=== PATIENT | female | born 1980 | race Hispanic/Latino ===

== ENCOUNTER 2017-03-01 13:02 | Emergency (ER) | payer OTHER ==
[2017-03-01 13:02] VITALS: BMI 26.3
[2017-03-01 13:17] VITALS: BP 121/60; PULSE 81; RESP 16; TEMP 98; O2SAT 100
[2017-03-01] MEDS ORDERED: Sodium Chloride 0.9% 1,000 ML IV STA (13:36)
--- NOTE | 2017-03-01 13:39 | ED PDOC ---
HPI: General Adult Time Seen by Provider: 03/01/17 13:38 Chief Complaint (Nursing): Abdominal Pain Chief Complaint (Provider): crampy lower abd pain History Per: Patient (36 y/o female [id number] approx 12 week gestation here with lower abdominal crampy pain here for evaluation. Patient has had US abdomen today outpatient with no heart rate noted. 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 Denies any vaginal bleeding.) Past Medical History Reviewed: Historical Data, Nursing Documentation, Vital Signs Vital Signs: Last Vital Signs Temp 98.0 F 03/01/17 13:14 Pulse 81 03/01/17 13:14 Resp 16 03/01/17 13:14 BP 121/60 03/01/17 13:14 Pulse Ox 100 03/02/17 23:17 - Medical History PMH: Asthma Denies: HIV, Chronic Kidney Disease - Family History Family History: States: No Known Family Hx - Home Medications Home Medications: Ambulatory Orders Medication Instructions Recorded Acetaminophen [Tylenol 325mg tab] 325 mg ASDIR PRN 05/18/16 Albuterol HFA [Ventolin HFA 90 1 puff ASDIR PRN 05/18/16 mcg/actuation (8 g)] Ibuprofen [Motrin] 600 mg PO Q6H PRN #30 tab 05/18/16 - Allergies Allergies/Adverse Reactions: Allergies Allergy/AdvReac Type Severity Reaction Status Date / Time amoxicillin Allergy RASH Verified 03/01/17 13:14 Review of Systems ROS Statement: Except As Marked, All Systems Reviewed And Found Negative Physical Exam - Reviewed Nursing Documentation Reviewed: Yes Vital Signs Reviewed: Yes - Physical Exam Appears: Positive for: Well, Non-toxic, No Acute Distress Head Exam: Positive for: ATRAUMATIC, NORMAL INSPECTION, NORMOCEPHALIC Skin: Positive for: Normal Color, Warm, DRY Eye Exam: Positive for: EOMI, Normal appearance, PERRL ENT: Positive for: Normal ENT Inspection Neck: Positive for: Normal, Painless ROM Cardiovascular/Chest: Positive for: Regular Rate, Rhythm Respiratory: Positive for: CNT, Normal Breath Sounds Gastrointestinal/Abdominal: Positive for: Normal Exam, Bowel Sounds, Soft Pelvic Exam: Positive for: Other (PATIENT REFUSED PELVIC EXAM AT THIS TIME.) Back: Positive for: Normal Inspection Extremity: Positive for: Normal ROM Neurologic/Psych: Positive for: Alert, Oriented - Laboratory Results Result Diagrams: 03/01/17 13:53 03/01/17 13:53 - ECG O2 Sat by Pulse Oximetry: 100 - Progress ED Course And Treament: US TRANSVAGINAL Findings: The uterus measures approximately 15.6 x 11.0 x 6.0 cm. Anteverted. There is a single intrauterine fetus present. The gestational sac measures 4.0 cm and is compatible with a gestational age of 10 weeks 5 days. The crown-rump length measures 3.7 cm compatible with gestational age 10 weeks 4 days. Evidence of small subchorionic hemorrhage measuring approximately 1.6 x 0.9 cm inferior to the gestational sac. heart motion was not detected during this examination. The right ovary is not visualized. The left ovary measures 2.4 x 2.3 x 1.4 cm. Blood flow was demonstrated to the left ovary. Impression: Single intrauterine with estimated gestational age 10 weeks 5 days by gestational sac calculation and 10 weeks 4 days by crown-rump length calculation. Evidence of small subchorionic hemorrhage measuring approximately 1.6 x 0.9 cm noted inferior to the gestational sac. heart motion was not detected during this examination. Correlate clinically and repeat sonogram as indicated. 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 D/W HER RISKS AND BENEFITS OF ASSISTANT CHIEF ENGINEER CONSULTATION. AMA FORMS SIGNED. Disposition - Clinical Impression Clinical Impression: Abdominal pain during - Patient ED Disposition Is Patient to be Admitted: No - Disposition Disposition: Against Medical Advice Disposition Time: 17:18 Condition: STABLE
[2017-03-01 14:09] LABS: BASO % 0.4 % (0.0-2.0); EOS # 0.2 K/uL (0.0-0.7); EOS % 2.4 % (0.0-4.0); HEMOGLOBIN 12.6 g/dL (12.0-16.0); LYMPH # 2.3 K/uL (1.0-4.3); LYMPH % 23.2 % (20.0-40.0); MEAN CORPUSCULAR HEMOGLOBIN 32.7 pg (27.0-31.0); MEAN CORPUSCULAR HGB CONC 35.6 g/dL (33.0-37.0); MEAN PLATELET VOLUME 9.1 fl (7.2-11.7); MONO # 0.5 K/uL (0.0-0.8); MONO % 4.6 % (0.0-10.0); NEUT # 6.9 K/uL (1.8-7.0); NEUT % 69.4 % (50.0-75.0); NRBC % 0.1 % (0.0-0.0); RBC 3.87 Mil/uL (3.80-5.20); RED CELL DISTRIBUTION WIDTH 15.2 % (11.5-14.5)
[2017-03-01 14:13] LABS: ALB/GLOB RATIO 1.3 (1.0-2.1); ALBUMIN 4.2 g/dL (3.5-5.0); ALT/SGPT 29 U/L (9-52); AST/SGOT 16 U/L (14-36); CALCIUM 9.1 mg/dL (8.4-10.2); GFR AFRICAN-AMERICAN > 60; GFR NON-AFRICAN AMERICAN > 60
[2017-03-01 14:15] LABS: BLOOD UREA NITROGEN 2 mg/dl (7-17)
--- NOTE | 2017-03-01 15:52 | US ---
Indication: Possible demise Comparison: Pelvis/transvaginal ultrasound performed 01/15/17 Technique: Ob transvaginal Findings: The uterus measures approximately 15.6 x 11.0 x 6.0 cm. Anteverted. There is a single intrauterine fetus present. The gestational sac measures 4.0 cm and is compatible with a gestational age of 10 weeks 5 days. The crown-rump length measures 3.7 cm compatible with gestational age 10 weeks 4 days. Evidence of small subchorionic hemorrhage measuring approximately 1.6 x 0.9 cm inferior to the gestational sac. heart motion was not detected during this examination. The right ovary is not visualized. The left ovary measures 2.4 x 2.3 x 1.4 cm. Blood flow was demonstrated to the left ovary. Impression: Single intrauterine with estimated gestational age 10 weeks 5 days by gestational sac calculation and 10 weeks 4 days by crown-rump length calculation. Evidence of small subchorionic hemorrhage measuring approximately 1.6 x 0.9 cm noted inferior to the gestational sac. heart motion was not detected during this examination. Correlate clinically and repeat sonogram as indicated.
== END 2017-03-01 17:20 | disposition left against medical advice (07) ==
LOC: H.ER 13:02
DX: O26.899 Other specified pregnancy related conditions, unspecified trimester (principal); Z3A.10 10 weeks gestation of pregnancy

== ENCOUNTER 2017-03-18 12:31 | Inpatient (IN) | payer OTHER ==
[2017-03-18 12:41] VITALS: BMI 27.4
--- NOTE | 2017-03-18 13:28 | ED PDOC ---
HPI: Female Pain Time Seen by Provider: 03/18/17 13:06 Chief Complaint (Nursing): Abdominal Pain Chief Complaint (Provider): vaginal bleeding History Per: Patient History/Exam Limitations: no limitations Onset/Duration Of Symptoms: Days (x 2) Additional Complaint(s): Vandana Alicea is a 36 year old female, with no previous medical history, who is approximately 10 weeks presents to the ED for the evaluation of heavy vaginal bleeding with clotting associated with abdominal cramping ongoing for 2 days. Patient was seen in [facility] 10 days ago where she was informed there was no detectable heart rate and should expect the passing of the fetus. PMD: none provided Abnormal Vaginal Bleeding: Yes Past Medical History Reviewed: Historical Data, Nursing Documentation, Vital Signs Vital Signs: Last Vital Signs Temp 97.8 F 03/18/17 12:41 Pulse 137 H 03/18/17 12:41 Resp 19 03/18/17 12:41 BP 117/60 03/18/17 12:41 Pulse Ox 100 03/18/17 12:41 - Medical History PMH: Asthma Denies: HIV, Chronic Kidney Disease - Family History Family History: States: Unknown Family Hx - Home Medications Home Medications: Ambulatory Orders Medication Instructions Recorded Albuterol HFA [Ventolin HFA 90 2 puff IH Q4H PRN 03/18/17 mcg/actuation (8 g)] - Allergies Allergies/Adverse Reactions: Allergies Allergy/AdvReac Type Severity Reaction Status Date / Time amoxicillin Allergy RASH Verified 03/01/17 13:14 Review of Systems ROS Statement: Except As Marked, All Systems Reviewed And Found Negative Genitourinary Female: Positive for: Vaginal Bleeding, Pelvic Pain Physical Exam - Reviewed Nursing Documentation Reviewed: Yes Vital Signs Reviewed: Yes - Physical Exam Appears: Positive for: Well, Non-toxic, No Acute Distress Head Exam: Positive for: ATRAUMATIC, NORMAL INSPECTION, NORMOCEPHALIC Skin: Positive for: Normal Color, Warm, Dry Eye Exam: Positive for: Normal appearance ENT: Positive for: Normal ENT Inspection Neck: Positive for: Normal, Painless ROM, Supple Cardiovascular/Chest: Positive for: Regular Rate, Rhythm Respiratory: Positive for: CNT, Normal Breath Sounds Pelvic Exam: Positive for: Other (products of conceptions removed with forceps with moderate amount of bleeding noted. Clary HUSTON chaperoned ). Negative for: No Masses, Tender Adnexa Neurologic/Psych: Positive for: Alert, Oriented - Laboratory Results Result Diagrams: 03/18/17 16:41 03/18/17 13:00 - ECG O2 Sat by Pulse Oximetry: 100 (RA) Pulse Ox Interpretation: Normal Medical Decision Making Medical Decision Making: Initial Plan: * blood type and screen * beta-HCG * US OB * US OB transvaginal * labs * reevaluation Scribe Attestation: Documented by Priya Sharp, acting as a scribe for Bishop Quiros MD Provider Scribe Attestation: All medical record entries made by the Scribe were at my direction and personally dictated by me. I have reviewed the chart and agree that the record accurately reflects my personal performance of the history, physical exam, medical decision making, and the department course for this patient. I have also personally directed, reviewed, and agree with the discharge instructions and disposition. Disposition - Clinical Impression Clinical Impression: Incomplete , Anemia - Patient ED Disposition Is Patient to be Admitted: Yes - Disposition Disposition Time: 17:08 Condition: FAIR - Pt Status Changed To: Hospital Disposition Of: Inpatient - Admit Certification Admit to Inpatient:: After my assessment, the patient will require hospitalization for at least two midnights. This is because of the severity of symptoms shown, intensity of services needed, and/or the medical risk in this patient being treated as an outpatient. - POA Present On Arrival: None
[2017-03-18] MEDS ORDERED: Sodium Chloride 0.9% 1,000 ML IV STA ×2 (13:35→14:48)
[2017-03-18 14:11] LABS: BASO % 0.2 % (0.0-2.0); EOS % 0.1 % (0.0-4.0); HEMOGLOBIN 11.1 g/dL (12.0-16.0); LYMPH # 1.6 K/uL (1.0-4.3); LYMPH % 9.5 % (20.0-40.0); MEAN CELL VOLUME 92.4 fl (81.0-99.0); MEAN CORPUSCULAR HEMOGLOBIN 32.1 pg (27.0-31.0); MEAN CORPUSCULAR HGB CONC 34.8 g/dL (33.0-37.0); MEAN PLATELET VOLUME 9.6 fl (7.2-11.7); MONO # 0.6 K/uL (0.0-0.8); MONO % 3.2 % (0.0-10.0); PLATELET COUNT 296 K/uL (130-400); RBC 3.46 Mil/uL (3.80-5.20); WHITE BLOOD COUNT 17.2 K/uL (4.8-10.8)
[2017-03-18 14:14] LABS: ALB/GLOB RATIO 1.3 (1.0-2.1); ALBUMIN 3.9 g/dL (3.5-5.0); ALT/SGPT 22 U/L (9-52); AST/SGOT 24 U/L (14-36); BLOOD UREA NITROGEN 5 mg/dl (7-17); CALCIUM 9.1 mg/dL (8.4-10.2); GFR AFRICAN-AMERICAN > 60; GFR NON-AFRICAN AMERICAN > 60
[2017-03-18 15:28] LABS: LYMPHOCYTE 8 % (20-50); MONOCYTE 4 % (0-10); NEUTROPHIL 88 % (42-75); TOTAL CELLS COUNTED 100
[2017-03-18 15:29] LABS: ANISOCYTOSIS SLIGHT; LARGE PLATELETS PRESENT; OVALOCYTES SLIGHT; PLATELET ESTIMATE NORMAL (NORMAL)
[2017-03-18 16:53] LABS: BASO % 0.2 % (0.0-2.0); EOS % 0.3 % (0.0-4.0); LYMPH # 1.4 K/uL (1.0-4.3); LYMPH % 9.1 % (20.0-40.0); MEAN CELL VOLUME 93.5 fl (81.0-99.0); MEAN CORPUSCULAR HEMOGLOBIN 32.1 pg (27.0-31.0); MEAN CORPUSCULAR HGB CONC 34.3 g/dL (33.0-37.0); MEAN PLATELET VOLUME 9.8 fl (7.2-11.7); MONO # 0.6 K/uL (0.0-0.8); MONO % 3.8 % (0.0-10.0); NEUT # 13.2 K/uL (1.8-7.0); NEUT % 86.6 % (50.0-75.0); RBC 2.39 Mil/uL (3.80-5.20); RED CELL DISTRIBUTION WIDTH 14.8 % (11.5-14.5); WHITE BLOOD COUNT 15.3 K/uL (4.8-10.8)
[2017-03-18 16:57] LABS: HEMOGLOBIN 7.7 g/dL (12.0-16.0)
--- NOTE | 2017-03-18 17:00 | US ---
PROCEDURE: Obstetrical ultrasound examination HISTORY: threatened ab COMPARISON: 03/01/2017 TECHNIQUE: Transabdominal and transvaginal FINDINGS: There is no intrauterine gestation identified on the current examination. Previously identified intrauterine gestation is no longer evident. The endometrium is markedly thickened, measuring 3.7 cm. It is heterogeneous. This likely represents blood clot. There is no clear evidence of retained products of conception. The uterus measures 11.2 by 7.3 x 8.0 cm. There is no uterine mass. There is no free fluid in the cul-de-sac. Neither the right nor the left ovary are visualized. IMPRESSION: Findings consistent with miscarriage. No intrauterine gestation is evident. Probable intrauterine blood clot. No clear evidence of retained products of conception.
[2017-03-18] MEDS ORDERED: Sodium Chloride 0.9% 1,000 ML IV SCH (19:00)
--- NOTE | 2017-03-18 20:18 | CP.PCM.CON ---
History of Present Illness - History of Present Illness History of Present Illness: 36 yo recently with a 10 wk missed came into ER bleeding and abdominal pain. The ER attending was able to remove products of conception and U /S confirmed no gestational sac was noted, however the patient in the process was bleeding heavily and her Hgb dropped from 11.1 to 7.6. The patient became tacycardic up to 120s and slightly hypotensive 190s/50s. Patient to be transfused blood and was evaluated by myself for further management. Patient currently was feeling slightly better since passing tissue, bleeding had started to lessen, and patient was feeling less dizzy. No nausea/no vomiting, no CP, no SOB, no loss of consciousness, no abdominal pain Past Patient History - Past Medical History & Family History Past Medical History?: Yes - Past Social History Smoking Status: Never Smoked - CARDIAC Hx Cardiac Disorders: No - PULMONARY Hx Respiratory Disorders: Yes - NEUROLOGICAL Hx Neurological Disorder: No - HEENT Hx HEENT Problems: No - RENAL Hx Chronic Kidney Disease: No - ENDOCRINE/METABOLIC Hx Endocrine Disorders: No - HEMATOLOGICAL/ONCOLOGICAL Hx Human Immunodeficiency Virus (HIV): No - INTEGUMENTARY Hx Dermatological Problems: No - MUSCULOSKELETAL/RHEUMATOLOGICAL Hx Musculoskeletal Disorders: Yes - GASTROINTESTINAL Hx Gastrointestinal Disorders: No - GENITOURINARY/GYNECOLOGICAL Hx Genitourinary Disorders: No Other/Comment: multple misscarriage - PSYCHIATRIC Hx Psychophysiologic Disorder: No Hx Substance Use: No - SURGICAL HISTORY Hx Surgeries: Yes Hx Dilation and Curettage: Yes (X2) - ANESTHESIA Hx Anesthesia: Yes Hx Anesthesia Reactions: No Hx Malignant Hyperthermia: No Meds Allergies/Adverse Reactions: Allergies Allergy/AdvReac Type Severity Reaction Status Date / Time amoxicillin Allergy RASH Verified 03/01/17 13:14 - Medications Medications: Current Medications Sodium Chloride (Sodium Chloride 0.9%) 1,000 mls @ 100 mls/hr IV .Q10H LEILA Stop: 03/19/17 18:50 Physical Exam - Head Exam Head Exam: ATRAUMATIC - Respiratory Exam Respiratory Exam: Clear to Auscultation Bilateral, NORMAL BREATHING PATTERN - Cardiovascular Exam Cardiovascular Exam: REGULAR RHYTHM, +S1, +S2 - GI/Abdominal Exam GI & Abdominal Exam: Normal Bowel Sounds, Soft Additional comments: non tender, non-distended, no rebound, no gaurding - Exam Additional comments: os open, some bleeding noted from os, no products, no masses, no tissues present - Extremities Exam Extremities exam: Positive for: normal inspection Results - Vital Signs Recent Vital Signs: Last Vital Signs Temp 98.7 F 03/18/17 19:54 Pulse 94 H 03/18/17 19:54 Resp 16 03/18/17 19:54 BP 93/59 L 03/18/17 19:54 Pulse Ox 99 03/18/17 19:54 - Labs Result Diagrams: 03/18/17 16:41 03/18/17 13:00 Assessment & Plan - Assessment and Plan (Free Text) Assessment: A/P with currently incomplete miscarriage 1. Patient passed tissue in ER and currently has no products noted on exam or on U/S, however patient's cervical os is still open, most likely felt to be parous cervix and patient just recently passed tissue. Patient's Hgb went from 11.1->7.6 and patient became symptomatic. Patient to be admitted for blood transfusion. WIll place Vaginal Cytotec 800mg to help with completion of miscarriage and recommended Doxycyline 200mg PO x 1 dose to prevent endometritis. 2. Patient unlikely to need D&C for management. Will continued to be observed by medicine team and if feels well after transfusion and if bleeding significantly stops would recommend discharge 3. Follow up with an OB in 1-2 wks - Date & Time Date: 03/18/17 Time: 20:18
[2017-03-18] MEDS ORDERED: Albuterol HFA 90 mcg/actuation (8 g) IH PRN (22:12)
[2017-03-19 10:24] LABS: HEMOGLOBIN 9.6 g/dL (12.0-16.0); MEAN CELL VOLUME 91.2 fl (81.0-99.0); MEAN CORPUSCULAR HEMOGLOBIN 31.7 pg (27.0-31.0); MEAN CORPUSCULAR HGB CONC 34.8 g/dL (33.0-37.0); RBC 3.03 Mil/uL (3.80-5.20); RED CELL DISTRIBUTION WIDTH 15.1 % (11.5-14.5)
[2017-03-19 10:36] LABS: WHITE BLOOD COUNT 7.3 K/uL (4.8-10.8)
[2017-03-19 10:45] LABS: ALB/GLOB RATIO 1.2 (1.0-2.1); ALBUMIN 2.8 g/dL (3.5-5.0); ALT/SGPT 19 U/L (9-52); AST/SGOT 17 U/L (14-36); BLOOD UREA NITROGEN 4 mg/dl (7-17); CALCIUM 8.6 mg/dL (8.4-10.2); GFR AFRICAN-AMERICAN > 60; GFR NON-AFRICAN AMERICAN > 60
[2017-03-19 11:52] VITALS: RESP 18
[2017-03-19 12:23] VITALS: BP 110/75; PULSE 95; TEMP 98.3; O2SAT 100
--- NOTE | 2017-03-19 23:57 | CP.PCM.HP ---
History of Present Illness - History of Present Illness History of Present Illness: A 36 yr old female with hx of 10 weeks with hx of multiple miscarriages came with another spontaneous miscarriage with profuse vaginal bleeding for 2 days found out to be with hb dropped from 7.7 from 11 while in ER. obgyn evaluated the patient ,advise to observe patient as vaginal u\s showed no retain products Present on Admission - Present on Admission Any Indicators Present on Admission: No Review of Systems - Constitutional Constitutional: Fatigue, Headache. absent: Fever - EENT Nose/Mouth/Throat: absent: Nasal Congestion, Sore Throat - Cardiovascular Cardiovascular: Palpitations. absent: Chest Pain, Diaphoresis, Dyspnea, Pedal Edema - Respiratory Respiratory: absent: Cough, Wheezing, Excessive Mucous Production - Gastrointestinal Gastrointestinal: absent: Abdominal Pain, Constipation, Nausea, Vomiting - Genitourinary Genitourinary: absent: Urinary Frequency, Voiding Freq/Small Amts - Menstruation Menstruation: Abnormal Vaginal Bleeding - Musculoskeletal Musculoskeletal: absent: Deformity, Limited Range of Motion, Myalgias - Integumentary Integumentary: absent: Lesions - Neurological Neurological: Dizziness. absent: Abnormal Gait, Frequent Falls - Psychiatric Psychiatric: absent: Depression, Hallucinations Past Patient History - Past Medical History & Family History Past Medical History?: Yes - Past Social History Smoking Status: Never Smoked - CARDIAC Hx Cardiac Disorders: No - PULMONARY Hx Respiratory Disorders: Yes Hx Asthma: Yes - NEUROLOGICAL Hx Neurological Disorder: No - HEENT Hx HEENT Problems: No - RENAL Hx Chronic Kidney Disease: No - ENDOCRINE/METABOLIC Hx Endocrine Disorders: No - HEMATOLOGICAL/ONCOLOGICAL Hx AIDS: No Hx Human Immunodeficiency Virus (HIV): No - INTEGUMENTARY Hx Dermatological Problems: No - MUSCULOSKELETAL/RHEUMATOLOGICAL Hx Musculoskeletal Disorders: No Hx Falls: No - GASTROINTESTINAL Hx Gastrointestinal Disorders: No - GENITOURINARY/GYNECOLOGICAL Hx Genitourinary Disorders: No Other/Comment: multple misscarriage - PSYCHIATRIC Hx Psychophysiologic Disorder: No Hx Substance Use: No - SURGICAL HISTORY Hx Surgeries: Yes Hx Dilation and Curettage: Yes - ANESTHESIA Hx Anesthesia: Yes Hx Anesthesia Reactions: No Hx Malignant Hyperthermia: No Meds Home Medications: Home Medication List Medication Instructions Recorded Confirmed Type Docusate Sodium [Colace] 100 mg PO DAILY PRN #7 capsule 03/19/17 Rx Ferrous Gluconate 324 mg PO Q12 #14 tablet 03/19/17 Rx Allergies/Adverse Reactions: Allergies Allergy/AdvReac Type Severity Reaction Status Date / Time amoxicillin Allergy RASH Verified 03/01/17 13:14 Physical Exam - Constitutional Appears: No Acute Distress - Head Exam Head Exam: ATRAUMATIC, NORMAL INSPECTION, NORMOCEPHALIC - Eye Exam Eye Exam: EOMI, Normal appearance, PERRL. absent: Scleral icterus - ENT Exam ENT Exam: Mucous Membranes Dry - Neck Exam Neck exam: Positive for: Normal Inspection. Negative for: Lymphadenopathy, Tenderness - Respiratory Exam Respiratory Exam: Clear to Auscultation Bilateral, NORMAL BREATHING PATTERN. absent: Rhonchi, Wheezes - Cardiovascular Exam Cardiovascular Exam: Tachycardia, REGULAR RHYTHM, +S1, +S2. absent: JVD, Systolic Murmur - GI/Abdominal Exam GI & Abdominal Exam: Normal Bowel Sounds, Soft. absent: Tenderness - Extremities Exam Extremities exam: Positive for: normal inspection, pedal pulses present. Negative for: pedal edema - Back Exam Back exam: NORMAL INSPECTION. absent: paraspinal tenderness - Neurological Exam Neurological exam: Alert, CN II-XII Intact, Normal Gait, Oriented x3 - Psychiatric Exam Psychiatric exam: Normal Affect, Normal Mood - Skin Skin Exam: Intact, Pallor Results - Vital Signs Recent Vital Signs: Last Vital Signs Temp 98.3 F 03/19/17 12:22 Pulse 95 H 03/19/17 12:22 Resp 18 03/19/17 12:22 BP 110/75 03/19/17 12:22 Pulse Ox 100 03/19/17 12:22 - Labs Result Diagrams: 03/19/17 08:30 03/19/17 08:30 Labs: Laboratory Results - last 24 hr 03/19/17 03/19/17 08:30 08:30 WBC 7.3 D RBC 3.03 L Hgb 9.6 L Hct 27.6 L MCV 91.2 D MCH 31.7 H MCHC 34.8 RDW 15.1 H Plt Count 157 Sodium 139 Potassium 3.6 Chloride 110 H Carbon Dioxide 23 Anion Gap 10 BUN 4 L Creatinine 0.6 L Est GFR ( Amer) > 60 Est GFR (Non-Af Amer) > 60 Random Glucose 88 Calcium 8.6 Total Bilirubin 0.7 AST 17 ALT 19 Alkaline Phosphatase 37 L D Total Protein 5.2 L Albumin 2.8 L D Globulin 2.4 Albumin/Globulin Ratio 1.2 - Imaging and Cardiology US - abdomen Status: Report reviewed by me Assessment & Plan (1) Anemia due to blood loss Status: Acute Comment: ivf. tranfused 2 units of PRBC. HB9.9. feels better able to ambulate with no dizziness. awaiting for obgyn to clear pt for discharge (2) Headache Status: Resolved Comment: likleytension type. feels better Decision To Admit - Pt Status Changed To: Hospital Disposition Of: Observation - . Bed Request Type: Telemetry Admitting Physician: Lucy Mallory
--- NOTE | 2017-03-20 12:29 | CP.PCM.DIS ---
Provider - Provider Date of Admission: 03/18/17 17:01 Attending physician: Lucy Mallory MD Time Spent in preparation of Discharge (in minutes): 15 Diagnosis - Discharge Diagnosis (1) Anemia due to blood loss Status: Acute Comment: NEEDS CONNECTIVE TISSUE disorder work up (2) Headache Status: Resolved Hospital Course - Lab Results Lab Results: Most Recent Lab Values WBC 7.3 K/uL (4.8-10.8) D 03/19/17 08:30 RBC 3.03 Mil/uL (3.80-5.20) L 03/19/17 08:30 Hgb 9.6 g/dL (12.0-16.0) L 03/19/17 08:30 Hct 27.6 % (34.0-47.0) L 03/19/17 08:30 MCV 91.2 fl (81.0-99.0) D 03/19/17 08:30 MCH 31.7 pg (27.0-31.0) H 03/19/17 08:30 MCHC 34.8 g/dL (33.0-37.0) 03/19/17 08:30 RDW 15.1 % (11.5-14.5) H 03/19/17 08:30 Plt Count 157 K/uL (130-400) 03/19/17 08:30 MPV 9.8 fl (7.2-11.7) 03/18/17 16:41 Neut % (Auto) 86.6 % (50.0-75.0) H 03/18/17 16:41 Lymph % (Auto) 9.1 % (20.0-40.0) L 03/18/17 16:41 [place] % (Auto) 3.8 % (0.0-10.0) 03/18/17 16:41 Eos % (Auto) 0.3 % (0.0-4.0) 03/18/17 16:41 Baso % (Auto) 0.2 % (0.0-2.0) 03/18/17 16:41 Neut # 13.2 K/uL (1.8-7.0) H 03/18/17 16:41 Lymph # 1.4 K/uL (1.0-4.3) 03/18/17 16:41 [place] # 0.6 K/uL (0.0-0.8) 03/18/17 16:41 Eos # 0.0 K/uL (0.0-0.7) 03/18/17 16:41 Baso # 0.0 K/uL (0.0-0.2) 03/18/17 16:41 Neutrophils % (Manual) 88 % (42-75) H 03/18/17 13:00 Lymphocytes % (Manual) 8 % (20-50) L 03/18/17 13:00 Monocytes % (Manual) 4 % (0-10) 03/18/17 13:00 Platelet Estimate Normal (NORMAL) 03/18/17 13:00 Large Platelets Present 03/18/17 13:00 Anisocytosis (manual) Slight 03/18/17 13:00 Macrocytosis (manual) Slight 03/18/17 13:00 Ovalocytes Slight 03/18/17 13:00 Sodium 139 mmol/l (132-148) 03/19/17 08:30 Potassium 3.6 MMOL/L (3.6-5.0) 03/19/17 08:30 Chloride 110 mmol/L (98-107) H 03/19/17 08:30 Carbon Dioxide 23 mmol/L (22-30) 03/19/17 08:30 Anion Gap 10 (10-20) 03/19/17 08:30 BUN 4 mg/dl (7-17) L 03/19/17 08:30 Creatinine 0.6 mg/dL (0.7-1.2) L 03/19/17 08:30 Est GFR ( Amer) > 60 03/19/17 08:30 Est GFR (Non-Af Amer) > 60 03/19/17 08:30 Random Glucose 88 mg/dL (65-105) 03/19/17 08:30 Calcium 8.6 mg/dL (8.4-10.2) 03/19/17 08:30 Total Bilirubin 0.7 mg/dl (0.2-1.3) 03/19/17 08:30 AST 17 U/L (14-36) 03/19/17 08:30 ALT 19 U/L (9-52) 03/19/17 08:30 Alkaline Phosphatase 37 U/L (38-126) L D 03/19/17 08:30 Total Protein 5.2 G/DL (6.3-8.2) L 03/19/17 08:30 Albumin 2.8 g/dL (3.5-5.0) L D 03/19/17 08:30 Globulin 2.4 gm/dL (2.2-3.9) 03/19/17 08:30 Albumin/Globulin Ratio 1.2 (1.0-2.1) 03/19/17 08:30 Beta HCG, Quant 305.63 mIU/mL 03/18/17 13:00 Blood Type O POSITIVE 03/18/17 13:00 Antibody Screen Negative 03/18/17 13:00 Crossmatch See Detail 03/18/17 13:00 BBK History Checked Patient has bt 03/18/17 13:00 - Hospital Course Hospital Course: patient child came to room, patient refuse to s F\U OBGYNend her back, d\w patient after lengthy discussion,agrred advise to take [id number] colace PRN Discharge Exam - Head Exam Head Exam: ATRAUMATIC, NORMAL INSPECTION, NORMOCEPHALIC Discharge Plan - Discharge Medications Prescriptions: Docusate Sodium [Colace] 100 mg PO DAILY PRN #7 capsule PRN Reason: Constipation Ferrous Gluconate 324 mg PO Q12 #14 tablet - Follow Up Plan Condition: FAIR Disposition: HOME/ ROUTINE Instructions: Spontaneous Miscarriage (DC), Anemia (DC)
== END 2017-03-19 15:45 | disposition home or self-care (01) | DRG 380 ==
LOC: H.ER 12:31 → H.ERHOLD 17:01 → H.TEL 18:41
PROVIDERS: ADMIT Internal Medicine; ATTEND Internal Medicine
PROC: 30233N1 Transfusion of Nonautologous Red Blood Cells into Peripheral Vein, Percutaneous Approach (ICD-10-PCS; principal; 2017-03-18)
DX: O03.4 Incomplete spontaneous abortion without complication (principal); D50.0 Iron deficiency anemia secondary to blood loss (chronic); J45.909 Unspecified asthma, uncomplicated; R51 Headache

== ENCOUNTER 2017-07-16 12:48 | Emergency (ER) | payer OTHER ==
[2017-07-16 12:52] VITALS: RESP 16; TEMP 98.6
[2017-07-16 12:53] VITALS: BMI 28.8
--- NOTE | 2017-07-16 14:03 | ED PDOC ---
Syncope/Near Syncope/Dizziness Time Seen by Provider: 07/16/17 13:09 Chief Complaint (Nursing): Dizziness/Lightheaded Chief Complaint (Provider): Dizziness History Per: Patient History/Exam Limitations: no limitations Onset/Duration Of Symptoms: Days (Yesterday 18:00), Sudden Onset Associated Symptoms Preceding Syncopal Episode: Vertigo Additional Complaint(s): Patient is a 36 y/o female with a past medical history of vertigo, who presents to the ED complaining of dizziness that began suddenly last night at 18:00. Patient reports that she felt she was going to pass out, but did not. She notes the dizziness subsided but is still present on arrival, and that she intermittently feels dizzy when walking. She also reports being told she has a history of vertigo and that she suffered an episode a long time ago, and that she has had ringing and noise in her right ear for many years. She denies taking any mediations for her current symptoms, as well as any chest pain, shortness of breath, palpitations, bleeding, or headache. PCP: Gabrielle Blue Past Medical History Reviewed: Historical Data, Nursing Documentation, Vital Signs Vital Signs: Last Vital Signs Temp 98.6 F 07/16/17 12:51 Pulse 109 H 07/16/17 12:51 Resp 16 07/16/17 12:51 BP 127/73 07/16/17 12:51 Pulse Ox 98 07/16/17 12:51 - Medical History PMH: Asthma Denies: HIV, Chronic Kidney Disease - Surgical History Other surgeries: Dilation and curretage - Family History Family History: States: No Known Family Hx, Unknown Family Hx - Social History Current smoker - smoking cessation education provided: No Ex-Smoker (has not smoked in the last 12 months): No Alcohol: None Drugs: Denies - Home Medications Home Medications: Ambulatory Orders Medication Instructions Recorded Albuterol HFA [Ventolin HFA 90 2 puff IH Q4H PRN 03/18/17 mcg/actuation (8 g)] Docusate Sodium [Colace] 100 mg PO DAILY PRN #7 capsule 03/19/17 Ferrous Gluconate 324 mg PO Q12 #14 tablet 03/19/17 Meclizine [Meclizine*] 25 mg PO TID PRN #30 tab 07/16/17 - Allergies Allergies/Adverse Reactions: Allergies Allergy/AdvReac Type Severity Reaction Status Date / Time amoxicillin Allergy RASH Verified 07/16/17 12:50 Review of Systems ROS Statement: Except As Marked, All Systems Reviewed And Found Negative Cardiovascular: Negative for: Chest Pain, Palpitations Respiratory: Negative for: Shortness of Breath Genitourinary Female: Negative for: Vaginal Bleeding Neurological: Positive for: Dizziness. Negative for: Headache Physical Exam - Reviewed Nursing Documentation Reviewed: Yes Vital Signs Reviewed: Yes - Physical Exam Appears: Positive for: No Acute Distress Head Exam: Positive for: ATRAUMATIC, NORMOCEPHALIC Skin: Positive for: Normal Color, Warm, Dry Eye Exam: Positive for: Normal appearance, EOMI, PERRL Neck: Positive for: Normal, Painless ROM, Supple Cardiovascular/Chest: Positive for: Regular Rate, Rhythm. Negative for: Murmur Respiratory: Positive for: Normal Breath Sounds. Negative for: Respiratory Distress Gastrointestinal/Abdominal: Positive for: Normal Exam, Soft. Negative for: Tenderness Back: Positive for: Normal Inspection. Negative for: L CVA Tenderness, R CVA Tenderness, Vertebral Tenderness Extremity: Positive for: Normal ROM. Negative for: Pedal Edema, Deformity Neurologic/Psych: Positive for: Alert, Oriented (x3). Negative for: Motor/ Sensory Deficits - Laboratory Results Result Diagrams: 07/16/17 14:10 07/16/17 14:10 - ECG O2 Sat by Pulse Oximetry: 98 (RA) Pulse Ox Interpretation: Normal Medical Decision Making Medical Decision Makin:53 Initial Impression: Vertigo Differential: Central Vertigo versus Peripheral Vertigo Initial Plan: --CT Head w/o contrast --EKG --Basic Metabolic Panel --Troponin I --ED Urine --ED Urine dipstick --CBC --Antivert 25 mg PO 15:07 CT Head w/o contrast FINDINGS: HEMORRHAGE: No acute parenchymal, subarachnoid or extra-axial hemorrhage. BRAIN: No mass effect or edema. No atrophy or chronic microvascular ischemic changes. VENTRICLES: No obstructive hydrocephalus. . 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 PARANASAL SINUSES: Unremarkable as visualized. No significant inflammatory changes. MASTOID AIR CELLS: Unremarkable as visualized. No inflammatory changes. OTHER FINDINGS: None. IMPRESSION: No acute intracranial hemorrhage. 16:27 -Patient is found to be feeling better. Patient is stable for discharge home with followup with Neurologist and ENT specialist Clinical Impression: Vertigo Upon provider evaluation patient is medically stable, and requires no further treatment in the ED at this time. Patient will be discharged with Rx for Meclizine 25mg PO. Counseling was provided and all questions were answered regarding diagnosis and need for follow up with Vishal Cullen MD and Taat Baker MD. There is agreement to discharge plan. Return if symptoms persist or worsen. Scribe Attestation: Documented by Reg Culver, acting as a scribe for Tara Branham MD Provider Scribe Attestation: All medical record entries made by the Scribe were at my direction and personally dictated by me. I have reviewed the chart and agree that the record accurately reflects my personal performance of the history, physical exam, medical decision making, and the department course for this patient. I have also personally directed, reviewed, and agree with the discharge instructions and disposition. Disposition - Clinical Impression Clinical Impression: Dizziness - Patient ED Disposition Is Patient to be Admitted: No Doctor Will See Patient In The: Office Counseled Patient/Family Regarding: Studies Performed, Diagnosis, Need For Followup - Disposition Referrals: Tata Baker MD [Staff Provider] - Vishal Cullen MD [Staff Provider] - Disposition: Routine/Home Disposition Time: 16:27 Condition: GOOD Additional Instructions: Take your medications as instructed. Follow up with up in 2-3 days. Prescriptions: Meclizine [Meclizine*] 25 mg PO TID PRN #30 tab PRN Reason: Dizziness Instructions: Vertigo (ED)
[2017-07-16 14:26] LABS: BASO # 0.1 K/uL (0.0-0.2); BASO % 0.8 % (0.0-2.0); EOS # 0.1 K/uL (0.0-0.7); EOS % 1.6 % (0.0-4.0); HEMATOCRIT 39.8 % (34.0-47.0); LYMPH # 1.9 K/uL (1.0-4.3); LYMPH % 21.4 % (20.0-40.0); MEAN CELL VOLUME 89.2 fl (81.0-99.0); MEAN CORPUSCULAR HEMOGLOBIN 31.8 pg (27.0-31.0); MEAN CORPUSCULAR HGB CONC 35.6 g/dL (33.0-37.0); MEAN PLATELET VOLUME 8.5 fl (7.2-11.7); MONO # 0.4 K/uL (0.0-0.8); NEUT # 6.2 K/uL (1.8-7.0); NEUT % 71.2 % (50.0-75.0); NRBC % 0.1 % (0.0-0.0); RED CELL DISTRIBUTION WIDTH 13.7 % (11.5-14.5); WHITE BLOOD COUNT 8.8 K/uL (4.8-10.8)
[2017-07-16 14:46] LABS: BLOOD UREA NITROGEN 7 mg/dl (7-17); CALCIUM 9.6 mg/dL (8.4-10.2); CARBON DIOXIDE 26 mmol/L (22-30); CHLORIDE 104 mmol/L (98-107); GFR AFRICAN-AMERICAN > 60; GLUCOSE,RANDOM 94 mg/dL (65-105); POTASSIUM 4.1 MMOL/L (3.6-5.0); SODIUM 141 mmol/l (132-148)
--- NOTE | 2017-07-16 15:09 | CT ---
PROCEDURE: CT HEAD WITHOUT CONTRAST. HISTORY: dizzines COMPARISON: None available. TECHNIQUE: Axial computed tomography images were obtained through the head/brain without intravenous contrast. Radiation dose: Total exam DLP = 1141.36 mGy-cm. This CT exam was performed using one or more of the following dose reduction techniques: Automated exposure control, adjustment of the mA and/or kV according to patient size, and/or use of iterative reconstruction technique. FINDINGS: HEMORRHAGE: No acute parenchymal, subarachnoid or extra-axial hemorrhage. BRAIN: No mass effect or edema. No atrophy or chronic microvascular ischemic changes. VENTRICLES: No obstructive hydrocephalus. . 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 PARANASAL SINUSES: Unremarkable as visualized. No significant inflammatory changes. MASTOID AIR CELLS: Unremarkable as visualized. No inflammatory changes. OTHER FINDINGS: None. IMPRESSION: No acute intracranial hemorrhage.
[2017-07-16] MEDS ORDERED: WATER IV ONE (15:56)
[2017-07-16] MEDS ORDERED: DEXAMETHASONE IV ONE (15:56)
[2017-07-16] MEDS ORDERED: DEXTROSE 5% IV ONE (15:56)
[2017-07-16 17:05] VITALS: BP 114/74; PULSE 78; O2SAT 100
--- NOTE | 2017-07-17 21:16 | CARD ---
APPROVED REPORT EKG Measurement Heart [id number] CT [id number] [id number] <Conclusion> Normal sinus rhythm Rightward axis Possible Inferior infarct, age undetermined Abnormal ECG
== END 2017-07-16 17:00 | disposition home or self-care (01) ==
LOC: H.ER 12:48
DX: R42 Dizziness and giddiness (principal); J45.909 Unspecified asthma, uncomplicated
CPT/HCPCS: 70450; 80048; 81025; 84484; 85025; 93005; 96374; 99284; J1100

== ENCOUNTER 2017-08-27 12:55 | Emergency (ER) | payer OTHER ==
[2017-08-27 12:55] VITALS: BMI 28.8
[2017-08-27 13:05] VITALS: BP 128/70; PULSE 78; RESP 16; TEMP 97; O2SAT 100
--- NOTE | 2017-08-27 13:41 | ED PDOC ---
HPI: CCC, URI, Sore Throat Chief Complaint (Nursing): ENT Problem Chief Complaint (Provider): ENT/ vertigo History Per: Patient History/Exam Limitations: no limitations Onset/Duration Of Symptoms: Persistent (1 month) Current Symptoms Are (Timing): Still Present Additional Complaint(s): 36 y/o female with a past medical history of vertigo presents to ED complaining of dizziness, onset of 1 month. Patient was initially evaluated in this ED on for same complaints and states that these symptoms have been ongoing since then. Patient reports of following up with 2 ENT specialists, where she was given a prescription for Meclizine by one and a steroid by the other. Of note, the patient has been noncompliant with the medicine over the past few days because she states that the medicine does not help. No headache, no SOB, no chest pain PCP: Shaik Alarcon Past Medical History Reviewed: Historical Data, Nursing Documentation, Vital Signs Vital Signs: Last Vital Signs Temp 97.0 F L 08/27/17 13:00 Pulse 78 08/27/17 13:00 Resp 16 08/27/17 13:00 BP 128/70 08/27/17 13:00 Pulse Ox 100 08/27/17 13:55 - Medical History PMH: Asthma Denies: HIV, Chronic Kidney Disease Other PMH: Vertigo - Surgical History Surgical History: No Surg Hx - Family History Family History: States: Unknown Family Hx - Living Arrangements Living Arrangements: With Family - Social History Current smoker - smoking cessation education provided: No Alcohol: None Drugs: Denies - Home Medications Home Medications: Ambulatory Orders Medication Instructions Recorded Albuterol HFA [Ventolin HFA 90 2 puff IH Q4H PRN 03/18/17 mcg/actuation (8 g)] Docusate Sodium [Colace] 100 mg PO DAILY PRN #7 capsule 03/19/17 Ferrous Gluconate 324 mg PO Q12 #14 tablet 03/19/17 Meclizine [Meclizine*] 25 mg PO TID PRN #30 tab 07/16/17 Methylprednisolone [Medrol Dose 4 mg PO DAILY #21 mg 08/27/17 Pack (21 tabs)] - Allergies Allergies/Adverse Reactions: Allergies Allergy/AdvReac Type Severity Reaction Status Date / Time amoxicillin Allergy RASH Verified 07/16/17 12:50 Review of Systems ROS Statement: Except As Marked, All Systems Reviewed And Found Negative ENT: Negative for: Ear Pain Cardiovascular: Negative for: Chest Pain Respiratory: Negative for: Shortness of Breath Neurological: Positive for: Dizziness Physical Exam - Reviewed Nursing Documentation Reviewed: Yes Vital Signs Reviewed: Yes - Physical Exam Appears: Positive for: Non-toxic, No Acute Distress Head Exam: Positive for: ATRAUMATIC, NORMAL INSPECTION, NORMOCEPHALIC Skin: Positive for: Normal Color, Warm Eye Exam: Positive for: Normal appearance, EOMI, PERRL ENT: Positive for: Normal ENT Inspection Neck: Positive for: Normal, Painless ROM, Supple Cardiovascular/Chest: Positive for: Regular Rate, Rhythm. Negative for: Murmur Respiratory: Positive for: Normal Breath Sounds. Negative for: Respiratory Distress Gastrointestinal/Abdominal: Positive for: Normal Exam, Soft. Negative for: Tenderness Back: Positive for: Normal Inspection Extremity: Positive for: Normal ROM. Negative for: Pedal Edema, Deformity Neurologic/Psych: Positive for: Alert, Oriented. Negative for: Motor/Sensory Deficits - ECG O2 Sat by Pulse Oximetry: 100 (RA) Pulse Ox Interpretation: Normal Medical Decision Making Medical Decision Making: Time: --13:32 Impression: --36 y/o female with vertigo Plan: --Ativan 1 mg PO --Antivert 50 mg PO Reassess -- Scribe Attestation: Documented by Stoney Capone acting as a scribe for CHRIS Hazel. Disposition - Clinical Impression Clinical Impression: Vertigo - Patient ED Disposition Is Patient to be Admitted: No - Disposition Disposition: Routine/Home Disposition Time: 15:06 Condition: STABLE Prescriptions: Methylprednisolone [Medrol Dose Pack (21 tabs)] 4 mg PO DAILY #21 mg Instructions: Vertigo (ED) Forms: [employer] ([place] Citizen)
== END 2017-08-27 15:24 | disposition home or self-care (01) ==
LOC: H.ER 12:55
DX: R42 Dizziness and giddiness (principal); Z91.14 Patient's other noncompliance with medication regimen; J45.909 Unspecified asthma, uncomplicated

== ENCOUNTER 2017-09-07 10:51 | Emergency (ER) | payer OTHER ==
[2017-09-07 11:04] VITALS: BMI 29.2
[2017-09-07 11:05] VITALS: BP 120/58; PULSE 91; RESP 16; TEMP 98.1; O2SAT 98
--- NOTE | 2017-09-07 12:28 | ED PDOC ---
Lower Extremity Pain/Injury Time Seen by Provider: 09/07/17 11:11 Chief Complaint (Nursing): Lower Extremity Problem/Injury Chief Complaint (Provider): Lower Extremity Problem/Injury History Per: Patient History/Exam Limitations: no limitations Onset/Duration Of Symptoms: Days (x 2) Current Symptoms Are (Timing): Still Present Additional Complaint(s): Vandana is a 36 year old female who presents to the emergency department complaining of atraumatic left lower extremity pain for 2 days. Patient reports pain starts at the knee and radiate up. Patient reports not taking any medications for pain thus far, but is concern about potential blood clot PMD: Shaik Agnes Past Medical History Reviewed: Historical Data, Nursing Documentation, Vital Signs Vital Signs: Last Vital Signs Temp 98.1 F 09/07/17 11:04 Pulse 91 H 09/07/17 11:04 Resp 16 09/07/17 11:04 BP 120/58 L 09/07/17 11:04 Pulse Ox 98 09/07/17 11:04 - Medical History PMH: Asthma Denies: HIV, Chronic Kidney Disease - Surgical History Surgical History: No Surg Hx - Family History Family History: States: Unknown Family Hx - Home Medications Home Medications: Ambulatory Orders Medication Instructions Recorded Albuterol HFA [Ventolin HFA 90 2 puff IH Q4H PRN 03/18/17 mcg/actuation (8 g)] Docusate Sodium [Colace] 100 mg PO DAILY PRN #7 capsule 03/19/17 Ferrous Gluconate 324 mg PO Q12 #14 tablet 03/19/17 Meclizine [Meclizine*] 25 mg PO TID PRN #30 tab 07/16/17 Methylprednisolone [Medrol Dose 4 mg PO DAILY #21 mg 08/27/17 Pack (21 tabs)] Ibuprofen [Motrin] 600 mg PO Q6 #20 tab 09/07/17 - Allergies Allergies/Adverse Reactions: Allergies Allergy/AdvReac Type Severity Reaction Status Date / Time amoxicillin Allergy RASH Verified 09/07/17 11:08 Review of Systems ROS Statement: Except As Marked, All Systems Reviewed And Found Negative Musculoskeletal: Positive for: Other (Left Lower Extremity Pain) Physical Exam - Reviewed Nursing Documentation Reviewed: Yes Vital Signs Reviewed: Yes - Physical Exam Appears: Positive for: Non-toxic Head Exam: Positive for: NORMAL INSPECTION Skin: Positive for: Normal Color, Warm, DRY Eye Exam: Positive for: Normal appearance ENT: Positive for: Normal ENT Inspection Neck: Positive for: Normal, Supple Cardiovascular/Chest: Positive for: Regular Rate, Rhythm Respiratory: Positive for: Normal Breath Sounds. Negative for: Respiratory Distress Gastrointestinal/Abdominal: Positive for: Normal Exam, Soft. Negative for: Tenderness Back: Positive for: Normal Inspection Extremity: Positive for: Normal ROM. Negative for: Deformity Neurologic/Psych: Positive for: Alert, Oriented (x 3) - ECG O2 Sat by Pulse Oximetry: 98 (RA) Pulse Ox Interpretation: Normal Medical Decision Making Medical Decision Making: Time: 11:56 Plan: - Left Knee X-Ray - Motrin Tab - Left Femur X-Ray - Left Lower Extremity Ultrasound Time:12:43 Left Knee X-Ray FINDINGS: BONES: Normal. No fracture. JOINTS: Normal. No osteoarthritis. JOINT EFFUSION: None. OTHER FINDINGS: None. IMPRESSION: Normal radiographs of the left knee. Time: 13:13 Left Femur X-Ray FINDINGS: No fracture or lytic lesions noted. No periosteal reaction. Surrounding soft tissues appear grossly unremarkable IMPRESSION: Negative exam as detailed above US: Negative for DVT Scribe Attestation: Documented by Mike Bravo, acting as a scribe for MARLON Hazel Provider Scribe Attestation: All medical record entries made by the Scribe were at my direction and personally dictated by me. I have reviewed the chart and agree that the record accurately reflects my personal performance of the history, physical exam, medical decision making, and the department course for this patient. I have also personally directed, reviewed, and agree with the discharge instructions and disposition. Disposition - Clinical Impression Clinical Impression: Leg pain - Patient ED Disposition Is Patient to be Admitted: No - Disposition Disposition: Routine/Home Disposition Time: 16:17 Condition: STABLE Prescriptions: Ibuprofen [Motrin] 600 mg PO Q6 #20 tab Instructions: Leg Pain (ED) Forms: [employer] ([place]) Connect ([place])
--- NOTE | 2017-09-07 13:13 | RAD ---
PROCEDURE: HISTORY: pain COMPARISON: None TECHNIQUE: Single frontal view left femur. Extreme left femoral head cap excluded from view FINDINGS: No fracture or lytic lesions noted. No periosteal reaction. Surrounding soft tissues appear grossly unremarkable IMPRESSION: Negative exam as detailed above
--- NOTE | 2017-09-07 13:13 | RAD ---
PROCEDURE: Left Knee Radiographs. HISTORY: Pain. COMPARISON: None. FINDINGS: BONES: Normal. No fracture. JOINTS: Normal. No osteoarthritis. JOINT EFFUSION: None. OTHER FINDINGS: None. IMPRESSION: Normal radiographs of the left knee.
--- NOTE | 2017-09-07 16:29 | US ---
Left lower extremity ultrasound. Indication: Rule out DVT Technique: Duplex ultrasound evaluation of the left lower extremity Comparison: None available Findings: There is normal flow, compressibility, and augmentation of the left common femoral, femoral, and popliteal veins. The left posterior tibial vein appears patent. Impression: No evidence of deep venous thrombosis in the left lower extremity.
== END 2017-09-07 16:25 | disposition home or self-care (01) ==
LOC: H.ER 10:51
DX: M79.605 Pain in left leg (principal)

== ENCOUNTER 2017-11-28 09:53 | Emergency (ER) | payer OTHER ==
[2017-11-28 10:09] VITALS: BMI 29.4
[2017-11-28 10:10] VITALS: O2SAT 99
[2017-11-28 11:49] LABS: BASO # 0.1 K/uL (0.0-0.2); EOS # 0.3 K/uL (0.0-0.7); EOS % 3.9 % (0.0-4.0); HEMOGLOBIN 13.9 g/dL (12.0-16.0); LYMPH # 1.8 K/uL (1.0-4.3); LYMPH % 23.7 % (20.0-40.0); MEAN CELL VOLUME 91.7 fl (81.0-99.0); MONO # 0.5 K/uL (0.0-0.8); NEUT % 65.4 % (50.0-75.0); RBC 4.33 Mil/uL (3.80-5.20); RED CELL DISTRIBUTION WIDTH 13.4 % (11.5-14.5); WHITE BLOOD COUNT 7.6 K/uL (4.8-10.8)
[2017-11-28 12:04] LABS: ALB/GLOB RATIO 1.3 (1.0-2.1)
[2017-11-28 12:09] LABS: ALBUMIN 4.3 g/dL (3.5-5.0); ALT/SGPT 23 U/L (9-52); AST/SGOT 16 U/L (14-36); BLOOD UREA NITROGEN 10 mg/dl (7-17); CALCIUM 9.6 mg/dL (8.4-10.2); GFR AFRICAN-AMERICAN > 60; GFR NON-AFRICAN AMERICAN > 60
--- NOTE | 2017-11-28 12:34 | ED PDOC ---
Syncope/Near Syncope/Dizziness Time Seen by Provider: 11/28/17 10:54 Chief Complaint (Nursing): Dizziness/Lightheaded Chief Complaint (Provider): Dizziness/Lightheaded History Per: Patient History/Exam Limitations: no limitations Additional Complaint(s): 37 y/o female presents to the ED complaining of dizziness, headache and blood in urine. States that she has dizziness since July on and off and has bloody urine since days. Her CT was normal in previous visits an upon follow up with neurologist she advised to get an MRI but she was so far unable to get it. Denies dysuria, vomiting, fever or any further medical complaints. Past Medical History Reviewed: Historical Data, Nursing Documentation, Vital Signs Vital Signs: Last Vital Signs Temp 98.1 F 11/28/17 10:09 Pulse 86 11/28/17 10:09 Resp 17 11/28/17 10:09 BP 110/78 11/28/17 10:09 Pulse Ox 99 11/28/17 10:09 - Medical History PMH: Asthma Denies: HIV, Chronic Kidney Disease - Family History Family History: States: Unknown Family Hx - Home Medications Home Medications: Ambulatory Orders Medication Instructions Recorded RX: Albuterol HFA [Ventolin HFA 90 2 puff IH Q4H PRN 03/18/17 mcg/actuation (8 g)] Docusate Sodium [Colace] 100 mg PO DAILY PRN #7 capsule 03/19/17 RX: Ferrous Gluconate 324 mg PO Q12 #14 tablet 03/19/17 RX: Meclizine [Meclizine*] 25 mg PO TID PRN #30 tab 07/16/17 Methylprednisolone [Medrol Dose 4 mg PO DAILY #21 mg 08/27/17 Pack (21 tabs)] Ibuprofen [Motrin] 600 mg PO Q6 #20 tab 09/07/17 RX: traMADol [Ultram] 50 mg PO Q4 #10 tab 09/07/17 - Allergies Allergies/Adverse Reactions: Allergies Allergy/AdvReac Type Severity Reaction Status Date / Time amoxicillin Allergy RASH Verified 11/28/17 10:31 Review of Systems ROS Statement: Except As Marked, All Systems Reviewed And Found Negative (As per HPI,otherwise negative) Constitutional: Negative for: Fever Gastrointestinal: Negative for: Vomiting Genitourinary Female: Positive for: Hematuria. Negative for: Dysuria Neurological: Positive for: Headache, Dizziness Physical Exam - Reviewed Nursing Documentation Reviewed: Yes Vital Signs Reviewed: Yes - Physical Exam Appears: Positive for: Non-toxic, No Acute Distress Head Exam: Positive for: ATRAUMATIC, NORMAL INSPECTION, NORMOCEPHALIC Skin: Positive for: Normal Color, Warm, Dry Eye Exam: Positive for: EOMI, Normal appearance, PERRL ENT: Positive for: Normal ENT Inspection Neck: Positive for: Normal, Painless ROM, Supple Cardiovascular/Chest: Positive for: Regular Rate, Rhythm. Negative for: Murmur Respiratory: Positive for: Normal Breath Sounds. Negative for: Accessory Muscle Use, Respiratory Distress Gastrointestinal/Abdominal: Positive for: Normal Exam, Bowel Sounds, Soft Back: Positive for: Normal Inspection Extremity: Positive for: Normal ROM. Negative for: Deformity Neurologic/Psych: Positive for: Alert, bun panner II-XII, Oriented. Negative for: Motor/Sensory Deficits - Laboratory Results Result Diagrams: 11/28/17 11:40 11/28/17 11:40 - ECG O2 Sat by Pulse Oximetry: 99 (RA) Pulse Ox Interpretation: Normal Medical Decision Making Medical Decision Making: Time: 11:34 Initial Impression: Dizziness Plan: CMP CBC w/ differential Toradol 30mg IV Urine C&S Urinalysis Reevaluation Time: 13:33 --Urine - no infection --Labs reviewed and discussed results with patient --Patient advised to follow up as an out patient with her neurologist Scribe Attestation: Documented by Haydee Fraser acting as a scribe for Kassandra Wolfe MD. MD Dhaliwal Attestation: All medical record entries made by the Scribe were at my direction and personally dictated by me. I have reviewed the chart and agree that the record accurately reflects my personal performance of the history, physical exam, medical decision making, and the department course for this patient. I have also personally directed, reviewed, and agree with the discharge instructions and disposition. Disposition - Clinical Impression Clinical Impression: Chronic headaches - Disposition Referrals: [facility] [Outside] [facility] [Outside] Maycol Jenkins MD [Staff Provider] - Condition: IMPROVED Additional Instructions: follow up with your primary doctor in 1-2 days/ follow up with neurologist as well return to the ED with any worsening or concerning symptoms Instructions: Headache, Adult Forms: [employer] (Greek)
[2017-11-28 13:41] VITALS: BP 110/70; PULSE 76; RESP 20; TEMP 98
[2017-11-28 14:23] LABS: SQUAMOUS EPITHIAL 1 /hpf (0-5); URINE BACTERIA RARE (<OCC); URINE BILIRUBIN NEGATIVE (NEGATIVE); URINE BLOOD SMALL (NEGATIVE); URINE CLARITY CLEAR (Clear); URINE COLOR STRAW (YELLOW); URINE GLUCOSE (UA) NEG (Normal); URINE LEUKOCYTE ESTERASE NEG Leu/uL (Negative); URINE PROTEIN NEGATIVE (NEGATIVE); URINE UROBILINOGEN 0.2-1.0 mg/dL (0.2-1.0)
== END 2017-11-28 14:00 | disposition home or self-care (01) ==
LOC: H.ER 09:53
DX: R51 Headache (principal); J45.909 Unspecified asthma, uncomplicated

== ENCOUNTER 2019-01-22 09:30 | Emergency (ER) | payer OTHER ==
[2019-01-22 09:30] VITALS: BMI 29.4
[2019-01-22 09:49] VITALS: RESP 16
[2019-01-22 11:14] LABS: BASO % 0.7 % (0.0-2.0); EOS # 0.4 K/uL (0.0-0.7); EOS % 6.2 % (0.0-4.0); HEMOGLOBIN 12.6 g/dL (12.0-16.0); LYMPH # 1.9 K/uL (1.0-4.3); LYMPH % 28.1 % (20.0-40.0); MEAN CELL VOLUME 90.1 fl (81.0-99.0); MEAN CORPUSCULAR HEMOGLOBIN 31.7 pg (27.0-31.0); MEAN CORPUSCULAR HGB CONC 35.2 g/dL (33.0-37.0); MEAN PLATELET VOLUME 8.8 fl (7.2-11.7); MONO # 0.4 K/uL (0.0-0.8); MONO % 6.5 % (0.0-10.0); NEUT % 58.5 % (50.0-75.0); RBC 3.97 Mil/uL (3.80-5.20); RED CELL DISTRIBUTION WIDTH 14.2 % (11.5-14.5); WHITE BLOOD COUNT 6.8 K/uL (4.8-10.8)
[2019-01-22 11:25] LABS: ALB/GLOB RATIO 1.3 (1.0-2.1); ALBUMIN 4.1 g/dL (3.5-5.0); ALT/SGPT 22 U/L (9-52); AST/SGOT 20 U/L (14-36); BLOOD UREA NITROGEN 8 mg/dl (7-17); CALCIUM 9.1 mg/dL (8.4-10.2); GFR NON-AFRICAN AMERICAN > 60; LIPASE 103 U/L (23-300)
--- NOTE | 2019-01-22 11:28 | RAD ---
Date of service: 01/22/2019 PROCEDURE: Radiographs of the chest and abdomen (obstructive series) HISTORY: abdominal pain COMPARISON: No prior. TECHNIQUE: AP radiograph of the chest, with upright and supine radiographs of the abdomen. 3 views obtained. FINDINGS: CHEST: Lungs: Clear. Cardiovascular: Normal size heart. No pulmonary vascular congestion. No aortic atherosclerotic calcification present Pleura: No pleural fluid. No pneumothorax. Other findings: None. ABDOMEN AND PELVIS: Bowel: Unremarkable bowel gas pattern. No evidence of mechanical obstruction. Free air: None. Bones: Unremarkable. Other findings: None. IMPRESSION: Unremarkable radiographs of chest and abdomen. No evidence of mechanical bowel obstruction.
[2019-01-22 11:30] LABS: SQUAMOUS EPITHIAL 5 /hpf (0-5); URINE BACTERIA RARE (<OCC); URINE BILIRUBIN NEGATIVE (NEGATIVE); URINE BLOOD SMALL (NEGATIVE); URINE CLARITY SLIGHTY-CLOUDY (Clear); URINE COLOR YELLOW (YELLOW); URINE GLUCOSE (UA) NEG (NEGATIVE); URINE LEUKOCYTE ESTERASE TRACE Leu/uL (Negative); URINE PROTEIN NEGATIVE (NEGATIVE); URINE UROBILINOGEN 0.2-1.0 mg/dL (0.2-1.0)
--- NOTE | 2019-01-22 12:06 | ED PDOC ---
HPI: Abdomen Time Seen by Provider: 01/22/19 10:14 Chief Complaint (Nursing): Abdominal Pain Chief Complaint (Provider): Abdominal Pain History Per: Patient History/Exam Limitations: no limitations Onset/Duration Of Symptoms: Other (2 WEEKS) Quality Of Discomfort: Sharp Additional Complaint(s): 38 y/o female presents to the ED complaining of intermittent abdominal pain for 2 weeks. Patient states the pain is sharp, will last for a couple of minutes at a time and is migratory in nature; ocurring in different areas of abdomen. Patient denies nausea, fever, or any vomiting. She reports her appetite remains good. Pt. saw her PMD last week for same pain, received a rx for abdomen xray but she has not had a chance to go yet. PMD: Dr. rico Past Medical History Reviewed: Historical Data, Nursing Documentation, Vital Signs Vital Signs: Last Vital Signs Temp 98.8 F 01/22/19 09:43 Pulse 80 01/22/19 09:43 Resp 16 01/22/19 09:43 BP 125/62 01/22/19 09:43 Pulse Ox 97 01/22/19 09:43 Primary Care Provider: Chalino Kim - Medical History PMH: Asthma Denies: HIV, Chronic Kidney Disease - Family History Family History: States: Unknown Family Hx - Home Medications Home Medications: Ambulatory Orders Medication Instructions Recorded Albuterol HFA [Ventolin HFA 90 2 puff IH Q4H PRN 03/18/17 mcg/actuation (8 g)] Meclizine [Meclizine*] 25 mg PO TID PRN #15 tab 01/31/18 Pseudoephedrine HCl [Sudafed] 30 mg PO TID PRN #15 tablet 01/31/18 Dicyclomine [Bentyl] 10 mg PO TID #10 cap 01/22/19 - Allergies Allergies/Adverse Reactions: Allergies Allergy/AdvReac Type Severity Reaction Status Date / Time amoxicillin Allergy RASH Verified 01/31/18 10:46 peanut Allergy RASH Verified 01/22/19 09:49 Review of Systems ROS Statement: Except As Marked, All Systems Reviewed And Found Negative Constitutional: Negative for: Fever Gastrointestinal: Positive for: Abdominal Pain. Negative for: Nausea, Vomiting Physical Exam - Reviewed Nursing Documentation Reviewed: Yes Vital Signs Reviewed: Yes - Physical Exam Appears: Positive for: Well, Non-toxic, No Acute Distress Head Exam: Positive for: ATRAUMATIC, NORMAL INSPECTION, NORMOCEPHALIC Skin: Positive for: Normal Color, Warm, Dry Eye Exam: Positive for: EOMI, Normal appearance, PERRL ENT: Positive for: Normal ENT Inspection Neck: Positive for: Normal, Painless ROM, Supple Cardiovascular/Chest: Positive for: Regular Rate, Rhythm. Negative for: Murmur Respiratory: Positive for: Normal Breath Sounds. Negative for: Wheezing Gastrointestinal/Abdominal: Positive for: Normal Exam, Soft. Negative for: Tenderness Back: Positive for: Normal Inspection. Negative for: L CVA Tenderness, R CVA Tenderness Extremity: Positive for: Normal ROM Neurological/Psych: Positive for: Awake, Alert, Normal Tone, Oriented (X3). Negative for: Motor/Sensory Deficits - Laboratory Results Result Diagrams: 01/22/19 11:00 01/22/19 11:00 Lab Results: Total Bilirubin 0.7 mg/dl (0.2-1.3) 01/22/19 11:00 AST 20 U/L (14-36) 01/22/19 11:00 ALT 22 U/L (9-52) 01/22/19 11:00 Alkaline Phosphatase 48 U/L (38-126) 01/22/19 11:00 Total Protein 7.3 G/DL (6.3-8.2) 01/22/19 11:00 Albumin 4.1 g/dL (3.5-5.0) 01/22/19 11:00 Globulin 3.1 gm/dL (2.2-3.9) 01/22/19 11:00 Albumin/Globulin Ratio 1.3 (1.0-2.1) 01/22/19 11:00 Lipase 103 U/L (23-300) 01/22/19 11:00 Urine Color Yellow (YELLOW) 01/22/19 11:00 Urine Clarity Slighty-cloudy (Clear) 01/22/19 11:00 Urine pH 6.0 (5.0-8.0) 01/22/19 11:00 Ur Specific Vina 1.012 (1.003-1.030) 01/22/19 11:00 Urine Protein Negative mg/dL (NEGATIVE) 01/22/19 11:00 Urine Glucose (UA) Neg mg/dL (NEGATIVE) 01/22/19 11:00 Urine Ketones Negative mg/dL (NEGATIVE) 01/22/19 11:00 Urine Blood Small (NEGATIVE) 01/22/19 11:00 Urine Nitrate Negative (NEGATIVE) 01/22/19 11:00 Urine Bilirubin Negative (NEGATIVE) 01/22/19 11:00 Urine Urobilinogen 0.2-1.0 mg/dL (0.2-1.0) 01/22/19 11:00 Ur Leukocyte Esterase Trace Christoph/uL (Negative) 01/22/19 11:00 Urine RBC (Auto) 2 /hpf (0-3) 01/22/19 11:00 Urine Microscopic WBC 4 /hpf (0-5) 01/22/19 11:00 Ur Squamous Epith Cells 5 /hpf (0-5) 01/22/19 11:00 Urine Bacteria Rare (<OCC) 01/22/19 11:00 - ECG O2 Sat by Pulse Oximetry: 97 Medical Decision Making Medical Decision Making: Time:1049 Impression: Plan: -CMP -Lipase -ED urine -CBC -X-RAY -Urinalysis EKG: NSR at 82, no acute ischemic changes, as read by me. Reassessment, pt. remains pain free in ED,. Repeat abdominal exam, abd. is soft, with no tenderness. Pt. ate a full meal here with no abdominal pain. ScribeAttestation: Documented by Radha Dey, acting as ascribefor Bernice Fairchild ProviderScribeAttestation: All medical record entries made by Sanjiv at my direction and personally dictated by me. I have reviewed the chart and agree that the record accurately reflects my personal performance of the history, physical exam, medical decision making, and the department course for this patient. I have also personally directed, reviewed, and agree with the discharge instructions and disposition Disposition - Clinical Impression Clinical Impression: Abdominal cramps - Patient ED Disposition Is Patient to be Admitted: No Doctor Will See Patient In The: Office Counseled Patient/Family Regarding: Studies Performed, Diagnosis, Need For Followup - Disposition Disposition: Routine/Home Disposition Time: 12:39 Condition: STABLE Additional Instructions: bland diet. follow up with you pmd dr. kim this week. Prescriptions: Dicyclomine [Bentyl] 10 mg PO TID #10 cap Instructions: Acute Abdomen (Belly Pain), Adult (DC) Forms: [employer] ([place])
[2019-01-22 12:55] VITALS: BP 120/71; PULSE 78; TEMP 98.2; O2SAT 98
== END 2019-01-22 12:55 | disposition home or self-care (01) ==
LOC: H.ER 09:30
DX: R10.9 Unspecified abdominal pain (principal); J45.909 Unspecified asthma, uncomplicated

== ENCOUNTER 2019-01-30 09:21 | Emergency (ER) | payer OTHER ==
[2019-01-30 09:28] VITALS: BMI 34.5
[2019-01-30 09:30] VITALS: RESP 17; TEMP 98.1; O2SAT 98
[2019-01-30] MEDS ORDERED: Sodium Chloride 0.9% 1,000 ML IV STA (10:12)
--- NOTE | 2019-01-30 10:59 | ED PDOC ---
HPI: Abdomen Time Seen by Provider: 01/30/19 09:34 Chief Complaint (Nursing): Abdominal Pain Chief Complaint (Provider): persistent abd pain History Per: Patient History/Exam Limitations: no limitations Onset/Duration Of Symptoms: Gradual Current Symptoms Are (Timing): Still Present Severity: Moderate Location Of Pain/Discomfort: RUQ Quality Of Discomfort: Aching Associated Symptoms: Nausea, Loss Of Appetite, Constipation. denies: Vomiting, Urinary Symptoms Exacerbating Factors: None Alleviating Factors: None Additional Complaint(s): 38yo female returns to ED c/o abd pain now mostly RUQ associated w nausea and c onstipation. Has taken mag citrate several times over the last week with mild improvement. Denies fever, melena, BRBPR or syncope. No pregnancies in last 6 months. LMP just finished./ Past Medical History Reviewed: Historical Data, Nursing Documentation, Vital Signs Vital Signs: Last Vital Signs Temp 98.1 F 01/30/19 09:28 Pulse 92 H 01/30/19 09:28 Resp 17 01/30/19 09:28 BP 108/71 01/30/19 09:28 Pulse Ox 98 01/30/19 09:28 Primary Care Provider: Chalino Kim - Medical History PMH: Asthma Denies: HIV, Chronic Kidney Disease - Family History Family History: States: Unknown Family Hx - Social History Current smoker - smoking cessation education provided: No Alcohol: None - Home Medications Home Medications: Ambulatory Orders Medication Instructions Recorded Albuterol HFA [Ventolin HFA 90 2 puff IH Q4H PRN 03/18/17 mcg/actuation (8 g)] Meclizine [Meclizine*] 25 mg PO TID PRN #15 tab 01/31/18 Pseudoephedrine HCl [Sudafed] 30 mg PO TID PRN #15 tablet 01/31/18 Dicyclomine [Bentyl] 10 mg PO TID #10 cap 01/22/19 Ranitidine HCl [Zantac] 150 mg PO BID #20 tablet 01/30/19 - Allergies Allergies/Adverse Reactions: Allergies Allergy/AdvReac Type Severity Reaction Status Date / Time amoxicillin Allergy SHORTNESS Verified 01/30/19 09:43 OF BREATH peanut Allergy RASH Verified 01/30/19 09:43 Review of Systems ROS Statement: Except As Marked, All Systems Reviewed And Found Negative Constitutional: Negative for: Fever, Chills ENT: Negative for: Throat Pain Cardiovascular: Negative for: Chest Pain, Palpitations Respiratory: Negative for: Shortness of Breath Gastrointestinal: Positive for: Nausea, Abdominal Pain, Constipation Genitourinary Female: Negative for: Dysuria Musculoskeletal: Negative for: Neck Pain, Back Pain Skin: Negative for: Rash, Lesions Neurological: Negative for: Weakness, Numbness, Headache Psych: Negative for: Suicidal ideation Physical Exam - Reviewed Nursing Documentation Reviewed: Yes Vital Signs Reviewed: Yes - Physical Exam Appears: Positive for: Well, Non-toxic, No Acute Distress Head Exam: Positive for: ATRAUMATIC, NORMAL INSPECTION, NORMOCEPHALIC Skin: Positive for: Normal Color, Warm, DRY Eye Exam: Positive for: Normal appearance, EOMI, PERRL. Negative for: Scleral icterus ENT: Positive for: Normal ENT Inspection Neck: Positive for: Normal, Painless ROM Cardiovascular/Chest: Positive for: Regular Rate, Rhythm Respiratory: Positive for: CNT, Normal Breath Sounds Gastrointestinal/Abdominal: Positive for: Soft, Tenderness (RUQ). Negative for: Guarding, Asicites Back: Positive for: Normal Inspection Extremity: Positive for: Normal ROM. Negative for: Tenderness, Swelling Neurological/Psych: Positive for: Awake, Alert, Normal Tone. Negative for: Motor/Sensory Deficits - Laboratory Results Result Diagrams: 01/30/19 10:57 01/30/19 10:57 Urine POC: Negative - ECG O2 Sat by Pulse Oximetry: 98 Medical Decision Making Medical Decision Making: workup for recurrent abd pain now localizing to RUQ associated w nausea r/o biliary colic obtain US and bloodwork, analgesia initiated preg neg labs unremarkable imaging reviewed w patient and trial H2 jennyfer with mandatory followup GI if symptoms persist Disposition - Clinical Impression Clinical Impression: Abdominal pain - Patient ED Disposition Is Patient to be Admitted: No Counseled Patient/Family Regarding: Studies Performed, Diagnosis, Need For Followup, Rx Given - Disposition Referrals: Nick Moncada MD, PhD [Staff Provider] - Disposition: Routine/Home Disposition Time: 17:01 Condition: STABLE Additional Instructions: Followup with GI doctor in 5-7 days, return to ER for any new or worsening symptoms. Prescriptions: Ranitidine HCl [Zantac] 150 mg PO BID #20 tablet Instructions: Acute Abdomen (Belly Pain), Adult (DC) Forms: [employer] ([place])
[2019-01-30 11:05] LABS: BASO # 0.1 K/uL (0.0-0.2); BASO % 0.8 % (0.0-2.0); EOS # 0.4 K/uL (0.0-0.7); EOS % 5.8 % (0.0-4.0); HEMOGLOBIN 14.2 g/dL (12.0-16.0); LYMPH # 1.8 K/uL (1.0-4.3); LYMPH % 24.9 % (20.0-40.0); MEAN CELL VOLUME 91.8 fl (81.0-99.0); MEAN CORPUSCULAR HEMOGLOBIN 31.4 pg (27.0-31.0); MEAN CORPUSCULAR HGB CONC 34.2 g/dL (33.0-37.0); MEAN PLATELET VOLUME 8.8 fl (7.2-11.7); MONO # 0.4 K/uL (0.0-0.8); MONO % 5.6 % (0.0-10.0); NEUT # 4.6 K/uL (1.8-7.0); NEUT % 62.9 % (50.0-75.0); NRBC % 0.1 % (0.0-0.0); RBC 4.52 Mil/uL (3.80-5.20); RED CELL DISTRIBUTION WIDTH 14.2 % (11.5-14.5); WHITE BLOOD COUNT 7.3 K/uL (4.8-10.8)
[2019-01-30 11:17] LABS: ALB/GLOB RATIO 1.2 (1.0-2.1); ALBUMIN 4.8 g/dL (3.5-5.0); ALT/SGPT 23 U/L (9-52); AST/SGOT 30 U/L (14-36); BLOOD UREA NITROGEN 9 mg/dl (7-17); CALCIUM 9.5 mg/dL (8.4-10.2); GFR NON-AFRICAN AMERICAN > 60; LIPASE 136 U/L (23-300)
--- NOTE | 2019-01-30 11:45 | US ---
Date of service: 01/30/2019 HISTORY: RUQ GB, liver, CBD, aorta COMPARISON: None. TECHNIQUE: Sonographic evaluation of the right upper quadrant of the abdomen. FINDINGS: LIVER: Measures 15.1 cm in length. Normal echogenicity of the liver parenchyma. No mass. No intrahepatic bile duct dilatation. GALLBLADDER: Unremarkable. No gallstones. COMMON BILE DUCT: Measures 3.2 mm. No stones. No dilatation. PANCREAS: Unremarkable as visualized. No mass. No ductal dilatation. RIGHT KIDNEY: Measures 10.7 x 4.6 x 4.1 cm in length. Normal echogenicity. No calculus, mass, or hydronephrosis. AORTA: No aneurysmal dilatation. IVC: Unremarkable. OTHER FINDINGS: None . IMPRESSION: Unremarkable negative exam
[2019-01-30] MEDS ORDERED: Iohexol 240 (50 ml) PO ONE (12:09)
[2019-01-30] MEDS ORDERED: Iohexol 240 (50 ml) ONE (13:35)
[2019-01-30] MEDS ORDERED: Sodium Chloride 0.9% 50 ML IV ONE (16:05)
[2019-01-30] MEDS ORDERED: Iohexol 300 100 ML IJ ONE (16:05)
--- NOTE | 2019-01-30 17:00 | CT ---
Date of service: 01/30/2019 PROCEDURE: CT Abdomen and Pelvis with contrast HISTORY: R abd pain x1-2 weeks Negative test (concurrent with this examination). COMPARISON: January 30, 2019. Abdominal ultrasound. TECHNIQUE: Intravenous contrast dose: 95 cc Omnipaque 300. Radiation dose: Total exam DLP = <inf_radiation_dlp> mGy-cm. This CT exam was performed using one or more of the following dose reduction techniques: Automated exposure control, adjustment of the mA and/or kV according to patient size, and/or use of iterative reconstruction technique. FINDINGS: LOWER THORAX: Unremarkable. LIVER: Hepatic steatosis. No focal masses. No intrahepatic bile duct dilatation or perihepatic ascites. GALLBLADDER AND BILE DUCTS: Unremarkable. PANCREAS: Unremarkable. No gross lesion or ductal dilatation. SPLEEN: Top-normal spleen. Orthogonal measurements 6.2 x 12.7 cm. ADRENALS: Unremarkable. No mass. KIDNEYS AND URETERS: Unremarkable. No hydronephrosis. No solid mass. VASCULATURE: Unremarkable. No aortic aneurysm. No atherosclerotic calcification or mural plaque present. BOWEL: Unremarkable. No obstruction. No gross mural thickening. APPENDIX: A normal appendix is visualized in it's entirety. PERITONEUM: Unremarkable. No free fluid. No free air. LYMPH NODES: Unremarkable. No enlarged lymph nodes. BLADDER: Unremarkable. REPRODUCTIVE: Unremarkable. BONES: No acute fracture. OTHER FINDINGS: None. IMPRESSION: No significant or acute findings to account for/ related to the clinical presentation. Additional benign and/or incidental findings described above.
[2019-01-30 17:39] VITALS: BP 124/72; PULSE 84
== END 2019-01-30 17:30 | disposition home or self-care (01) ==
LOC: H.ER 09:21
DX: R10.9 Unspecified abdominal pain (principal)
CPT/HCPCS: 74177; 76705; 80053; 81025; 83690; 85025; 96361; 96374; 99284; J1885; J7030; Q9966; Q9967